=== PATIENT | female | born 1950 | race Caucasian/White ===

== ENCOUNTER 2023-09-19 09:53 | Inpatient (IN) | payer OTHER, MEDICARE ==
[2023-09-19] MEDS ORDERED: NA CHLORIDE 0.9% 1,000 ML ONE (10:28)
[2023-09-19 10:55] LABS: Absolute Lymphocytes (CBC) 1.9 K/uL (0.7-4.9); Lymphocytes % 15.7 % (15.3-44.8); MCV 76.9 fL (80-100); MPV 7.4 fL (7.6-11.3); Platelets 468 thou/uL (152-406); RBC Red Blood Cell Count 4.94 M/uL (3.86-4.86)
[2023-09-19 11:12] LABS: Albumin 3.3 g/dL (3.4-5.0); Bilirubin Direct 0.1 mg/dL (0-0.2); Bilirubin Indirect, Calculated 0.2 mg/dL (0.2-0.8); Bilirubin Total 0.3 mg/dL (0.2-1.0); Potassium 3.8 mEq/L (3.5-5.1); Protein, Total 7.6 g/dL (6.4-8.2)
--- NOTE | 2023-09-19 11:26 | EDPHYS ---
Physician Documentation [facility] Name: Audrey Ridley Age: 73 yrs Sex: Female : 1950 Arrival Date: 09/19/2023 Time: 09:53 Bed 18 Private MD: ED Physician Juan Tobin HPI: 09/19 10:29 This 73 yrs old Female presents to ER via Ambulatory with complaints of abnormal labs. rn 10:29 Patient reports was sick last week with cough/vomiting/diarrhea. Patient states has rn gotten over illness but followed up with PCP yesterday who fior basic labs and noted elevated creatinine and dehydration. Told to come to the emergency room today for IV hydration and further evaluation. Patient denies any chest pain/abdominal pain/vomiting/diarrhea. No other changes in medication. Otherwise feels okay and just started eating and drinking a little bit more yesterday. No history of kidney failure in the past. The patient has been recently seen by a physician:. Historical: - Allergies: 10:07 No Known Allergies; aa5 - PMHx: 10:08 Hypertensive disorder; COPD; thyroid problem; Diabetes mellitus; aa5 - Immunization history:: Adult Immunizations unknown. - Social history:: Smoking status: Patient/guardian denies using tobacco. - Family history:: not pertinent. - Hospitalizations: : No recent hospitalization is reported. ROS: 10:29 Constitutional: Negative for fever, chills, and weight loss, Cardiovascular: Negative rn for chest pain, palpitations, and edema, Respiratory: Negative for shortness of breath, cough, wheezing, and pleuritic chest pain, Abdomen/GI: Negative for abdominal pain, nausea, vomiting, diarrhea, and constipation, Back: Negative for injury and pain, MS/Extremity: Negative for injury and deformity, Skin: Negative for injury, rash, and discoloration, Neuro: Negative for headache, weakness, numbness, tingling, and seizure, Exam: 10:29 Constitutional: This is a well developed, well nourished patient who is awake, alert, rn and in no acute distress. ENT: Dry mucous membranes Cardiovascular: Regular rate and rhythm. No pulse deficits. Respiratory: No increased work of breathing, no retractions or nasal flaring. Abdomen/GI: Soft, non-tender MS/ Extremity: Pulses equal, no cyanosis. Neuro: Awake and alert, GCS 15 Vital Signs: 10:07 BP 135 / 56; Pulse 88; Resp 19 S; Temp 97.6(O); Pulse Ox 98% on R/A; Weight 61.23 kg aa5 (R); Height 5 ft. 5 in. (R); 12:03 BP 144 / 65; Pulse 79; Resp 16; Pulse Ox 96% on R/A; me1 12:30 BP 145 / 67; Pulse 79; Resp 17; Pulse Ox 96% on R/A; me1 13:00 BP 143 / 66; Pulse 79; Resp 17; Pulse Ox 96% on R/A; me1 10:07 Body Mass Index 22.46 (61.23 kg, 165.1 cm) aa5 MDM: 10:02 Patient medically screened. rn 11:25 Differential Diagnosis Acute kidney failure, dehydration, electrolyte disorder. Data rn reviewed: vital signs, nurses notes, lab test result(s), and as a result, I will discharge patient. Counseling: I had a detailed discussion with the patient and/or guardian regarding the historical points, exam findings, and any diagnostic results supporting the discharge/admit diagnosis, lab results, the need for further work-up and treatment in the hospital. Special discussion:. 09/19 10:13 Order name: CBC with Diff; Complete Time: 11:06 09/19 10:13 Order name: Basic Metabolic Panel; Complete Time: 11:15 09/19 10:13 Order name: LFT's; Complete Time: 11:15 09/19 10:13 Order name: Lipase; Complete Time: 11:15 09/19 13:16 Order name: Urinalysis w/ reflexes EDMS 09/19 13:16 Order name: Basic Metabolic Panel EDMS 09/19 13:16 Order name: Basic Metabolic Panel EDMS 09/19 13:16 Order name: Basic Metabolic Panel EDMS 09/19 13:16 Order name: Basic Metabolic Panel EDMS 09/19 13:16 Order name: CBC with Automated Diff EDMS 09/19 13:16 Order name: CBC with Automated Diff EDMS 09/19 13:16 Order name: CBC with Automated Diff EDMS 09/19 13:16 Order name: CBC with Automated Diff EDMS 09/19 13:16 Order name: Magnesium EDMS 09/19 13:16 Order name: Magnesium EDMS 09/19 13:16 Order name: Magnesium EDMS 09/19 13:16 Order name: Magnesium EDMS 09/19 14:36 Order name: Urinalysis w/ reflexes EDMS 09/19 10:13 Order name: IV Start; Complete Time: 10:53 aa5 Administered Medications: 10:52 Drug: NS 0.9% IV 1000 ml IV at 1000 ml once Route: IV; Rate: 1000 ml; Site: right ph antecubital; 12:49 Follow up: IV Status: Completed infusion; IV Intake: 1000ml me1 Disposition Summary: 09/19/23 11:26 Hospitalization Ordered Notes: Hospitalization Status: Inpatient Admission rn Provider: Henrry Chow rn Location: Telemetry/MedSurg (Inpatient) rn Condition: Stable rn Problem: new rn Symptoms: are unchanged rn Bed/Room Type: Standard rn Room Assignment: 220(09/19/23 13:21) em1 Diagnosis - Acute kidney failure, unspecified rn - Hypercalcemia rn - Dehydration rn Forms: - Medication Reconciliation Form rn - SBAR form rn - Leadership Thank You Letter rn Signatures: Dispatcher [employer] EDVT Juan Tobin MD MD rn Martinez, Eric em1 Bekah Ortega RN RN aa5 Teresa Buckley RN RN aYndy Maldonado RN me1 Corrections: (The following items were deleted from the chart) 10:32 10:29 Constitutional: This is a well developed, well nourished patient who is awake, rn alert, and in no acute distress. Cardiovascular: Regular rate and rhythm. No pulse deficits. Respiratory: No increased work of breathing, no retractions or nasal flaring. Abdomen/GI: Soft, non-tender MS/ Extremity: Pulses equal, no cyanosis. Neuro: Awake and alert, GCS 15 rn 13:21 11:26 rn em1 13:39 13:29 Head Brain Wo Cont ordered. EDVT EDVT
--- NOTE | 2023-09-19 11:26 | ER ---
Nurse's Notes [facility] Name: Audrey Urban Age: 73 yrs Sex: Female : 1950 Arrival Date: 09/19/2023 Time: 09:53 Bed 18 Private MD: Diagnosis: Acute kidney failure, unspecified;Hypercalcemia;Dehydration Presentation: 09/19 10:07 Chief complaint: Patient states: sent here by PCP for dehydration. Pt reports aa5 nausea/vomiting/diarrhea x 1 week ago, also reports cough. Reports had blood labs yesterday and creatinine 2.9. Coronavirus screen: cough unrelated to allergies. Ebola Screen: Patient denies travel to an Ebola-affected area in the 21 days before illness onset. Initial Sepsis Screen: Does the patient meet any 2 criteria? No. Patient's initial sepsis screen is negative. Does the patient have a suspected source of infection? No. Patient's initial sepsis screen is negative. Risk Assessment: Do you want to hurt yourself or someone else? Patient reports no desire to harm self or others. Onset of symptoms was September 2023. 10:07 Acuity: RONALDO 3 aa5 10:07 Method Of Arrival: Ambulatory aa5 Historical: - Allergies: 10:07 No Known Allergies; aa5 - PMHx: 10:08 Hypertensive disorder; COPD; thyroid problem; Diabetes mellitus; aa5 - Immunization history:: Adult Immunizations unknown. - Social history:: Smoking status: Patient/guardian denies using tobacco. - Family history:: not pertinent. - Hospitalizations: : No recent hospitalization is reported. Screenin:52 [facility] ED Fall Risk Assessment (Adult) History of falling in the last 3 months, ph including since admission No falls in past 3 months (0 pts) Score/Fall Risk Level 0 - 2 = Low Risk Oriented to surroundings, Maintained a safe environment, Hourly rounding (assess needs \T\ fall precautionary measures) done, Used ambulatory aids as needed (educated on \T\ assisted with). Abuse screen: Denies threats or abuse. Denies injuries from another. Nutritional screening: No deficits noted. Tuberculosis screening: No symptoms or risk factors identified. Assessment: 10:51 General: Appears in no apparent distress. comfortable, well groomed, Behavior is calm, ph cooperative, appropriate for age. Pain: Denies pain. Neuro: Level of Consciousness is awake, alert, obeys commands, Oriented to person, place, time, situation. Cardiovascular: Capillary refill < 3 seconds in bilateral fingers Patient's skin is warm and dry. Respiratory: Airway is patent Respiratory effort is even, unlabored. GI: Reports recent hx of N/V, last episode yesterday, denies symptoms at this time. Derm: Skin is pink, warm \T\ dry. 11:19 Reassessment: Patient appears in no apparent distress at this time. Patient and/or ph family updated on plan of care and expected duration. Pain level reassessed. Patient is alert, oriented x 3, equal unlabored respirations, skin warm/dry/pink. Dr Tobin at bedside to speak w/ pt. Vital Signs: 10:07 BP 135 / 56; Pulse 88; Resp 19 S; Temp 97.6(O); Pulse Ox 98% on R/A; Weight 61.23 kg aa5 (R); Height 5 ft. 5 in. (R); 12:03 BP 144 / 65; Pulse 79; Resp 16; Pulse Ox 96% on R/A; me1 12:30 BP 145 / 67; Pulse 79; Resp 17; Pulse Ox 96% on R/A; me1 13:00 BP 143 / 66; Pulse 79; Resp 17; Pulse Ox 96% on R/A; me1 10:07 Body Mass Index 22.46 (61.23 kg, 165.1 cm) [facility] ED Course: 10:00 Patient arrived in ED. aa5 10:02 Juan Tobin MD is Attending Physician. rn 10:07 Arm band placed on. aa5 10:08 Triage completed. aa5 10:14 Teresa Buckley, RN is Primary Nurse. 10:52 Patient has correct armband on for positive identification. Bed in low position. Call light in reach. Side rails up X 1. Pulse ox on. NIBP on. Door closed. Noise minimized. Pillow given. 10:52 Initial lab(s) drawn, by me, sent to lab. Inserted saline lock: 22 gauge in right ph antecubital area, using aseptic technique. Blood collected. 11:26 Henrry Chow MD is Hospitalizing Provider. rn 14:03 Provided Education on: POC. Verbalized understanding. . me1 14:03 No provider procedures requiring assistance completed. Patient admitted, IV remains in me1 place. Administered Medications: :52 Drug: NS 0.9% IV 1000 ml IV at 1000 ml once Route: IV; Rate: 1000 ml; Site: right ph antecubital; 12:49 Follow up: IV Status: Completed infusion; IV Intake: 1000ml me1 Medication: 10:52 VIS not applicable for this client. ph Intake: 12:49 IV: 1000ml; Total: 1000ml. oh1 Outcome: 11:26 Decision to Hospitalize by Provider. rn 14:03 Admitted to Med/surg accompanied by tech, via wheelchair, room 220, with chart, Report me1 called to ELIZABETH Landaverde 14:03 Condition: stable 14:03 Instructed on the need for admit, 14:43 Patient left the ED. [facility] Signatures: Juan Tobin MD MD rn Calderon, Audri RN RN aa5 Teresa Buckley RN RN ph Eddleman, Michelle, RN RN oh1
--- NOTE | 2023-09-19 13:11 | P.HP ---
Certification for Inpatient Patient admitted to: Observation With expected LOS: <2 Midnights Patient will require the following post-hospital care: None Practitioner: I am a practitioner with admitting privileges, knowledge of patient current condition, hospital course, and medical plan of care. Services: Services provided to patient in accordance with Admission requirements found in Title 42 Section 412.3 of the Code of Federal Regulations Patient History Date of Service: 09/19/23 Reason for admission: acute kidney injury, viral illness History of Present Illness: 73-year-old female with a past medical history of hypertension, COPD, hypothyroidism, diabetes mellitus, presents to the emergency room with viral illness caused, nausea vomiting cough. Abnormal labs showing acute kidney injury, dehydration. Reported gastro enteritis, nausea vomiting diarrhea for several days. Poor p.o. intake. Started feeling bad 1 week ago, poor p.o. intake in, no reported chest pain, abdominal pain, fever, edema, dizziness. Plan to admit for viral gastroenteritis, viral illness, acute kidney injury, dehydration, hypercalcemia.BP 135 / 56; Pulse 88; Resp 19 S; Temp 97.6(O); Pulse Ox 98% on R/A; Weight 61.23 kg ; Height 5 ft. 5 in laboratory evaluation leukocytosis 11.90, mild hyponatremia 131 BUN 48 creatinine 2.82, elevated glucose 343, elevated calcium 14.9, - Past Medical/Surgical History Diabetic: Yes -: Hypertension -: Hyperlipidemia -: Hypothyroidism -: COPD -: Breast tumor -: 3 -: Hysterectomy -: Bilateral mastectomy - Social History Smoking Status: Never smoker Alcohol use: No CD- Drugs: Yes Caffeine use: No Place of Residence: Home Review of Systems per HPI Physical Examination - Physical Exam General: Alert, In no apparent distress, Oriented x3, Confused HEENT: Atraumatic, Normocephalic Neck: 2+ carotid pulse no bruit, JVD not distended Respiratory: Clear to auscultation bilaterally, Other (Dry cough) Cardiovascular: No edema, Normal pulses Capillary refill: <2 Seconds Gastrointestinal: Normal bowel sounds, Soft and benign Musculoskeletal: No clubbing, No swelling Integumentary: No rashes, No breakdown Neurological: Other (Alert and oriented x 2) - Studies Laboratory Data (last 24 hrs) 09/19/23 09/19/23 10:35 10:35 WBC 11.90 H Hgb 12.5 Hct 38.0 Plt Count 468 H Sodium 131 L Potassium 3.8 BUN 48 H Creatinine 2.82 H Glucose 343 H Total Bilirubin 0.3 AST 14 L ALT 23 Alkaline Phosphatase 116 Lipase 76 H Assessment and Plan - Plan Assessment plan Gastroenteritis viral illness nausea vomiting Acute kidney injury likely from prerenal nausea vomiting diarrhea BUN 48 creatinine 2.82, Nephrology, IV fluids, as needed antiemetics trend kidney function Gentle IV fluids, 135 / 56; Pulse 88; Resp 19 S; Temp 97.6(O); Pulse Ox 98% on R/A; Weight 61.23 kg ; Height 5 ft. 5 in laboratory evaluation hypercalcemia Nephrology consult leukocytosis WBCs 11.90, trend WBCs mild hyponatremia 131 elevated glucose 343, elevated calcium 14.9, Diet clear liquids Full code DVT heparin Discharge Plan: Home Plan to discharge in: 48 Hours - Advance Directives Does patient have a Living Will: No Does patient have a Durable POA for Healthcare: No - Code Status/Comfort Care Code Status: Full Code Critical Care: No Time Spent Managing Pts Care (In Minutes): 55
[2023-09-19] MEDS ORDERED: ONDANSETRON 4 MG/2 ML VIAL IV PRN (13:12)
[2023-09-19] MEDS ORDERED: ALPRAZOLAM 0.25 MG TABLET PO PRN (13:12)
[2023-09-19] MEDS ORDERED: GLUCAGON 1 MG/VIAL IM PRN (13:25)
[2023-09-19] MEDS ORDERED: D10W 250 ML BAG IV PRN (13:25)
[2023-09-19] MEDS ORDERED: NA CHLORIDE 0.9% 1,000 ML IV SCH (14:00)
[2023-09-19] MEDS ORDERED: PAMIDRONATE DISOD 30 MG VIAL IV ONE (14:03)
[2023-09-19 14:36] LABS: Urine Bacteria None Seen /HPF (<20); Urine Bilirubin NEGATIVE (Negative); Urine Blood Negative (Negative); Urine Clarity Turbid (Clear); Urine Color Light-Yellow (Yellow); Urine Glucose 3+ (Negative); Urine Mucus Slight /HPF (None Seen); Urine Protein TRACE (Negative); Urine RBC <5 /HPF (None Seen); Urine Urobilinogen Normal (Normal)
[2023-09-19] MEDS ORDERED: PAMIDRONATE 90 MG in NA CHLORIDE 0.9% 500 ML IV ONE (15:00)
[2023-09-19] MEDS ORDERED: PAMIDRONATE 60 MG in NA CHLORIDE 0.9% 500 ML IV ONE (16:00)
[2023-09-19] MEDS: INSULIN REGULAR (HUMAN) 100 UNIT/ML SQ SCH ×2 (17:40→20:45)
[2023-09-19] MEDS: HEPARIN 5000 UNIT/ML 1 ML VIAL SQ SCH (17:40)
[2023-09-19] MEDS: NA CHLORIDE 0.9% 1,000 ML IV SCH (17:47)
[2023-09-19 18:44] LABS: Potassium 3.2 mEq/L (3.5-5.1)
--- NOTE | 2023-09-19 18:53 | P.CNS ---
Date of Consult: 09/19/23 Reason for Consult: SHAMIKA/ Hypercalcemia Requesting Physician: Henrry Chow Chief Complaint: acute kidney injury, viral illness History of Present Illness: 73-year-old female with a past medical history of hypertension, COPD, hyp othyroidism, diabetes mellitus, presents to the emergency room with viral illness caused, nausea vomiting cough. Abnormal labs showing acute kidney injury, dehydration. Reported gastro enteritis, nausea vomiting diarrhea for several days. Poor p.o. intake. Started feeling bad 1 week ago, poor p.o. intake in, no reported chest pain, abdominal pain, fever, edema, dizziness. Plan to admit for viral gastroenteritis, viral illness, acute kidney injury, dehydration, hypercalcemia.BP 135 / 56; Pulse 88; Resp 19 S; Temp 97.6(O); Pulse Ox 98% on R/A; Weight 61.23 kg ; Height 5 ft. 5 in laboratory evaluation leukocytosis 11.90, mild hyponatremia 131 BUN 48 creatinine 2.82, elevated glucose 343, elevated calcium 14.9. 10:29 This 73 yrs old Female presents to ER via Ambulatory with complaints of abnormal labs. rn 10:29 Patient reports was sick last week with cough/vomiting/diarrhea. Patient states has rn gotten over illness but followed up with PCP yesterday who fior basic labs and noted elevated creatinine and dehydration. Told to come to the emergency room today for IV hydration and further evaluation. Patient denies any chest pain/abdominal pain/vomiting/diarrhea. No other changes in medication. Otherwise feels okay and just started eating and drinking a little bit more yesterday. No history of kidney failure in the past. The patient has been recently seen by a physician:. She denies any history of CKD. She reports intermittent NSAIDs including several doses of Aleve prior to the admission. She has not been feeling well for approximately 1.5 weeks. She denies any difficulty with urination. She reports confusion and thirst. She reports daily calcium supplementation. Allergies No Known Allergies Allergy (Unverified 09/19/23 15:33) Home medications list reviewed: Yes - Past Medical/Surgical History Diabetic: Yes -: HTN -: HLD -: Hypothyroidism -: COPD -: Breast tumor -: Hx SHAMIKA (Dr. Hollingsworth/ Dr. Brush) -: Hx Hypercalcemia -: 3 -: Hysterectomy -: Bilateral mastectomy - Social History Smoking Status: Former smoker Alcohol use: No CD- Drugs: No Caffeine use: No Place of Residence: Home Review of Systems 10-point ROS is otherwise unremarkable General: Malaise Neurological: Confusion Physical Examination Temp Pulse Resp BP Pulse Ox 97.1 F 79 18 157/114 H 93 09/19/23 17:19 09/19/23 17:19 09/19/23 17:19 09/19/23 17:19 09/19/23 17:19 General: In no apparent distress, Oriented x3, Cooperative HEENT: Atraumatic Neck: Supple Respiratory: Normal air movement Cardiovascular: No edema, Regular rate/rhythm Gastrointestinal: Soft and benign, Non-distended Musculoskeletal: No clubbing, No contractures Integumentary: No rashes, No cyanosis Neurological: Normal speech Laboratory Data (last 24 hrs) 09/19/23 09/19/23 10:35 10:35 WBC 11.90 H Hgb 12.5 Hct 38.0 Plt Count 468 H Sodium 131 L Potassium 3.8 BUN 48 H Creatinine 2.82 H Glucose 343 H Total Bilirubin 0.3 AST 14 L ALT 23 Alkaline Phosphatase 116 Lipase 76 H Imagings Data: darrenrice EXAM DESCRIPTION: CT - Chest Abd Pelvis Wo Con - 09/19/2023 2:20 pm CLINICAL HISTORY: hypercalcemia; metastatic disease; AMS COMPARISON: No comparisons TECHNIQUE: Thin axial CT images of the chest, abdomen, and pelvis, performed without IV contrast. Multiplanar reformats were generated and reviewed. All CT scans are performed using dose optimization technique as appropriate and may include automated exposure control or mA/KV adjustment according to patient size. FINDINGS: The lungs are clear of consolidative opacities. Irregular ovoid nodule in the medial right middle lobe measuring 9 mm with extension to the pleura on axial image 46. Subpleural right lower lobe 7 mm nodule on axial image 36. Peripheral right upper lobe 5 mm nodule on axial image 31. Other scattered smaller bilateral pulmonary nodules, not exceeding 3 mm. Linear opacities with some bronchial wall thickening and calcified small granulomatous lesions are seen in the left lower lobe, may suggest an indolent infectious or inflammatory process. Small region of tree-in-bud opacities and septal thickening seen in the peripheral left upper lobe, probably of similar etiology. No pleural or pericardial effusion.No intrathoracic adenopathy. The liver shows small hypoattenuating lesions, largest within segment 4A measuring 1.2 cm. Spleen, pancreas, and kidneys are within normal limits. Nonspecific right adrenal 9 mm nodule. Left adrenal gland is unremarkable No bowel obstruction, free air, free fluid or abscess. Normal appendix. No pathologic lymphadenopathy in the abdomen or pelvis. No worrisome osseous finding. Superior endplate compression deformity at T5, favored to be chronic IMPRESSION: Scattered pulmonary nodules as above largest measuring 9 mm. These are indeterminate. Infectious/ inflammatory process as well as metastatic lesions should be considered. Comparison to older chest imaging would be helpful if available. Please correlate clinically, and consider short-term follow-up CT imaging in 1-3 months if no prior imaging or cancer history is available. Other mild pulmonary opacities on the left, suggestive of sequelae of infection/ inflammation. Nonspecific right adrenal 9 mm nodule, difficult to characterize given size. Hypoattenuating small liver lesions, may represent small cysts, also not well characterized. Conclusions/Impression: Stage II SHAMIKA likely due to hypovolemia complicated by NSAIDs & Hypercalcemia. Possible ATN. -Continue IVF Hyponatremia -Continue IVF with NS Hypokalemia -Replete as ordered Hypercalcemia in the setting of hypovolemia and calcium supplementation Possible malignancy associated hypercalcemia -Continue IVF -Pamidronate as ordered -Hypercalcemia labs pending HTN -Consider beta ramona DM II with Hyperglycemia -RISS -Check A1C Microcytosis -Check iron status Hospitalist and ER notes reviewed Thank you kindly for the consultation
[2023-09-19 19:36] LABS: Calcium Oxalate Crystals- Ur Few /HPF (None Seen); Urine Bacteria None Seen /HPF (<20); Urine RBC <5 /HPF (None Seen)
[2023-09-19 19:38] LABS: Specific Gravity 1.011 (1.005-1.030); Urine Bilirubin NEGATIVE (Negative); Urine Blood Negative (Negative); Urine Clarity Turbid (Clear); Urine Color Light-Yellow (Yellow); Urine Glucose 2+ (Negative); Urine Protein TRACE (Negative); Urine Urobilinogen Normal (Normal); Urine pH 7.5 (5.0-7.0)
--- NOTE | 2023-09-19 20:04 | RAD REPORT ---
EXAM DESCRIPTION: CT - Chest Abd Pelvis Wo Con - 09/19/2023 2:20 pm CLINICAL HISTORY: hypercalcemia; metastatic disease; AMS COMPARISON: No comparisons TECHNIQUE: Thin axial CT images of the chest, abdomen, and pelvis, performed without IV contrast. Mu ltiplanar reformats were generated and reviewed. All CT scans are performed using dose optimization technique as appropriate and may include automated exposure control or mA/KV adjustment according to patient size. FINDINGS: The lungs are clear of consolidative opacities. Irregular ovoid nodule in the medial right middle lobe measuring 9 mm with extension to the pleura on axial image 46. Subpleural right lower lo be 7 mm nodule on axial image 36. Peripheral right upper lobe 5 mm nodule on axial image 31. Other sc attered smaller bilateral pulmonary nodules, not exceeding 3 mm. Linear opacities with some bronchial wall thickening and calcified small granulomatous lesions are se en in the left lower lobe, may suggest an indolent infectious or inflammatory process. Small region o f tree-in-bud opacities and septal thickening seen in the peripheral left upper lobe, probably of sim ilar etiology. No pleural or pericardial effusion.No intrathoracic adenopathy. The liver shows small hypoattenuating lesions, largest within segment 4A measuring 1.2 cm. Spleen, pa ncreas, and kidneys are within normal limits. Nonspecific right adrenal 9 mm nodule. Left adrenal gl and is unremarkable No bowel obstruction, free air, free fluid or abscess. Normal appendix. No pathologic lymphadenopath y in the abdomen or pelvis. No worrisome osseous finding. Superior endplate compression deformity at T5, favored to be chronic IMPRESSION: Scattered pulmonary nodules as above largest measuring 9 mm. These are indeterminate. In fectious/ inflammatory process as well as metastatic lesions should be considered. Comparison to olde r chest imaging would be helpful if available. Please correlate clinically, and consider short-term f ollow-up CT imaging in 1-3 months if no prior imaging or cancer history is available. Other mild pulmonary opacities on the left, suggestive of sequelae of infection/ inflammation. Nonspecific right adrenal 9 mm nodule, difficult to characterize given size. Hypoattenuating small liver lesions, may represent small cysts, also not well characterized.
[2023-09-19 20:06] LABS: Ferritin 23.4 ng/mL (8-388)
[2023-09-19] MEDS ORDERED: POTASSIUM CL SA 10 MEQ TAB PO ONE (21:38)
[2023-09-20] MEDS ORDERED: POTASSIUM CL SA 10 MEQ TAB PO ONE ×2 (01:45→08:00)
[2023-09-20] MEDS: HEPARIN 5000 UNIT/ML 1 ML VIAL SQ SCH ×3 (01:57→16:01)
[2023-09-20 03:25] LABS: Absolute Lymphocytes (CBC) 2.8 K/uL (0.7-4.9); Hematocrit 34.8 % (36.0-45.0); Lymphocytes % 24.5 % (15.3-44.8); MCV 76.7 fL (80-100); MPV 7.8 fL (7.6-11.3); Platelets 411 thou/uL (152-406); RBC Red Blood Cell Count 4.53 M/uL (3.86-4.86)
[2023-09-20 03:40] LABS: Albumin 2.9 g/dL (3.4-5.0); Bilirubin Total 0.2 mg/dL (0.2-1.0); Magnesium 1.9 mg/dL (1.6-2.4); Potassium 3.4 mEq/L (3.5-5.1); Protein, Total 6.9 g/dL (6.4-8.2)
--- NOTE | 2023-09-20 07:36 | P.PN ---
Subjective Date of Service: 09/20/23 Chief Complaint: acute kidney injury, viral illness Tolerating diet, no reported fever, nausea vomiting diarrhea - Physical Exam General: Alert, In no apparent distress, Oriented x3, HEENT: Atraumatic, Normocephalic Neck: 2+ carotid pulse no bruit, JVD not distended Respiratory: Clear to auscultation bilaterally, Other (Dry cough) Cardiovascular: No edema, Normal pulses Capillary refill: <2 Seconds Gastrointestinal: Normal bowel sounds, Soft and benign Musculoskeletal: No clubbing, No swelling Integumentary: No rashes, No breakdown Neurological: Other (Alert and oriented x3) Review of Systems per HPI Physical Examination - Vital Signs Temperature: 97.0 F Blood Pressure: 146/68 Pulse: 91 Respirations: 18 Pulse Ox (%): 94 - Studies Laboratory Data (last 24 hrs) 09/19/23 09/19/23 10:35 10:35 WBC 11.90 H Hgb 12.5 Hct 38.0 Plt Count 468 H Sodium 131 L Potassium 3.8 BUN 48 H Creatinine 2.82 H Glucose 343 H Total Bilirubin 0.3 AST 14 L ALT 23 Alkaline Phosphatase 116 Lipase 76 H Assessment And Plan - Plan Assessment plan Gastroenteritis viral illness nausea vomiting Acute kidney injury likely from prerenal nausea vomiting diarrhea BUN 48 creatinine 2.82, Nephrology, IV fluids, as needed antiemetics trend kidney function Gentle IV fluids, 135 / 56; Pulse 88; Resp 19 S; Temp 97.6(O); Pulse Ox 98% on R/A; Weight 61.23 kg ; Height 5 ft. 5 in laboratory evaluation Hypokalemia Trend electrolytes replace as needed Nephrology following hypercalcemia Pulmonary nodules elevated calcium 12.7->12.8 Nephrology consult PTH, vitamin D 1, 25, Pamidronate x 1 ordered Normal saline at 100 an hour Will need outpatient follow-up with hematology, oncology CT of the chest abdomen pelvis ordered EXAM DESCRIPTION: CT - Chest Abd Pelvis Wo Con - 09/19/2023 2:20 pm CLINICAL HISTORY: hypercalcemia; metastatic disease; AMS TECHNIQUE: Thin axial CT images of the chest, abdomen, and pelvis, performed without IV contrast. Multiplanar reformats were generated and reviewed. All CT scans are performed using dose optimization technique as appropriate and may include automated exposure control or mA/KV adjustment according to patient size. FINDINGS: The lungs are clear of consolidative opacities. Irregular ovoid nodule in the medial right middle lobe measuring 9 mm with extension to the pleura on axial image 46. Subpleural right lower lobe 7 mm nodule on axial image 36. Peripheral right upper lobe 5 mm nodule on axial image 31. Other scattered smaller bilateral pulmonary nodules, not exceeding 3 mm. Linear opacities with some bronchial wall thickening and calcified small granulomatous lesions are seen in the left lower lobe, may suggest an indolent infectious or inflammatory process. Small region of tree-in-bud opacities and septal thickening seen in the peripheral left upper lobe, probably of similar etiology. No pleural or pericardial effusion.No intrathoracic adenopathy. The liver shows small hypoattenuating lesions, largest within segment 4A measuring 1.2 cm. Spleen, pancreas, and kidneys are within normal limits. Nonspecific right adrenal 9 mm nodule. Left adrenal gland is unremarkable No bowel obstruction, free air, free fluid or abscess. Normal appendix. No pathologic lymphadenopathy in the abdomen or pelvis. No worrisome osseous finding. Superior endplate compression deformity at T5, favored to be chronic IMPRESSION: Scattered pulmonary nodules as above largest measuring 9 mm. These are indeterminate. Infectious/ inflammatory process as well as metastatic lesions should be considered. Comparison to older chest imaging would be helpful if available. Please correlate clinically, and consider short-term follow-up CT imaging in 1-3 months if no prior imaging or cancer history is available. Other mild pulmonary opacities on the left, suggestive of sequelae of infection/ inflammation. Nonspecific right adrenal 9 mm nodule, difficult to characterize given size. Hypoattenuating small liver lesions, may represent small cysts, also not well characterized. Uncontrolled diabetes Lantus, sliding scale insulin Hemoglobin A1c 9.7 leukocytosis WBCs 11.90, trend WBCs mild hyponatremia 131 elevated glucose 343, Diet clear liquids Full code DVT heparin Discharge Plan: Home - Code Status/Comfort Care Code Status: Full Code Critical Care: No Time Spent Managing PTS Care (In Minutes): 35
[2023-09-20] MEDS ORDERED: cloNIDine HCL 0.1 MG TAB PO ONE (10:00)
[2023-09-20] MEDS: INSULIN REGULAR (HUMAN) 100 UNIT/ML SQ SCH ×4 (10:14→21:00)
[2023-09-20] MEDS: HYDRALAZINE HCL 20 MG/ML VIAL IV PRN (10:18)
[2023-09-20] MEDS ORDERED: NA CHLORIDE 0.9% 1,000 ML IV SCH (14:00)
[2023-09-20] MEDS: NA CHLORIDE 0.9% 1,000 ML IV SCH ×2 (15:53)
[2023-09-20] MEDS: FUROSEMIDE 20 MG/ 2ML VIAL IV SCH ×2 (15:53→16:09)
--- NOTE | 2023-09-20 20:10 | P.PN ---
Date of Service: 09/20/23 Vital Signs Temp Pulse Resp BP Pulse Ox 98.5 F 86 18 153/80 H 95 09/20/23 16:00 09/20/23 15:53 09/20/23 12:29 09/20/23 15:53 09/20/23 16:00 Medications Acetaminophen (Acetaminophen 500 Mg Tab) 500 mg PO Q4HP PRN PRN Reason: Pain scale 2-4 (Mild) Alprazolam (Alprazolam 0.25 Mg Tablet) 0.25 mg PO BEDTIME PRN PRN PRN Reason: INSOMNIA Dextrose (D10w 250 Ml Bag) 125 ml IV PRN PRN; Protocol PRN Reason: HYPOGLYCEMIA Furosemide (Furosemide 20 Mg/ 2ml Vial) 20 mg IV Q8HR [facility] Last Admin: 09/20/23 16:09 Dose: Not Given Glucagon (Glucagon 1 Mg/Vial) 1 mg IM 1X PRN; Protocol PRN Reason: HYPOGLYCEMIA Heparin Sodium (Porcine) (Heparin 5000 Unit/Ml 1 Ml Vial) 5,000 unit SQ Q8HR [facility] Last Admin: 09/20/23 16:01 Dose: 5,000 unit Hydralazine HCl (Hydralazine Hcl 20 Mg/Ml Vial) 10 mg IV Q4HP PRN PRN Reason: Goal to achieve SBP in comment Last Admin: 09/20/23 10:18 Dose: 10 mg Sodium Chloride (Ns 1000 Ml Ivbag) 1,000 mls @ 125 mls/hr IV .Q8H [facility] Last Admin: 09/20/23 15:53 Dose: 1,000 mls Insulin Glargine (Insulin Glargine 100 Unit/Ml) 10 unit SQ BEDTIME [facility] Insulin Human Regular (Insulin Regular (Human) 100 Unit/Ml) 0 unit SQ ACHS [facility]; Protocol Last Admin: 09/20/23 17:22 Dose: 2 unit Nebivolol (Nebivolol Hcl 5 Mg Tab) 2.5 mg PO BEDTIME [facility] Ondansetron HCl (Ondansetron 4 Mg/2 Ml Vial) 4 mg IV Q6HP PRN PRN Reason: NAUSEA / VOMITING Assessment/ Plan: Nephrology No dyspnea No chest pain Good urine output No acute events overnight Vitals, medications, blood work and imaging reviewed in the chart. General: In no apparent distress, Oriented x3, Cooperative HEENT: Atraumatic Neck: Supple Respiratory: Normal air movement Cardiovascular: No edema, Regular rate/rhythm Gastrointestinal: Soft and benign, Non-distended Musculoskeletal: No clubbing, No contractures Integumentary: No rashes, No cyanosis Neurological: Normal speech Laboratory Data (last 24 hrs) 09/19/23 09/19/23 10:35 10:35 WBC 11.90 H Hgb 12.5 Hct 38.0 Plt Count 468 H Sodium 131 L Potassium 3.8 BUN 48 H Creatinine 2.82 H Glucose 343 H Total Bilirubin 0.3 AST 14 L ALT 23 Alkaline Phosphatase 116 Lipase 76 H Imagings Data: EXAM DESCRIPTION: CT - Chest Abd Pelvis Wo Con - 09/19/2023 2:20 pm CLINICAL HISTORY: hypercalcemia; metastatic disease; AMS COMPARISON: No comparisons TECHNIQUE: Thin axial CT images of the chest, abdomen, and pelvis, performed without IV contrast. Multiplanar reformats were generated and reviewed. All CT scans are performed using dose optimization technique as appropriate and may include automated exposure control or mA/KV adjustment according to patient size. FINDINGS: The lungs are clear of consolidative opacities. Irregular ovoid nodule in the medial right middle lobe measuring 9 mm with extension to the pleura on axial image 46. Subpleural right lower lobe 7 mm nodule on axial image 36. Peripheral right upper lobe 5 mm nodule on axial image 31. Other scattered smaller bilateral pulmonary nodules, not exceeding 3 mm. Linear opacities with some bronchial wall thickening and calcified small granulomatous lesions are seen in the left lower lobe, may suggest an indolent infectious or inflammatory process. Small region of tree-in-bud opacities and septal thickening seen in the peripheral left upper lobe, probably of similar etiology. No pleural or pericardial effusion.No intrathoracic adenopathy. The liver shows small hypoattenuating lesions, largest within segment 4A measuring 1.2 cm. Spleen, pancreas, and kidneys are within normal limits. Nonspecific right adrenal 9 mm nodule. Left adrenal gland is unremarkable No bowel obstruction, free air, free fluid or abscess. Normal appendix. No pathologic lymphadenopathy in the abdomen or pelvis. No worrisome osseous finding. Superior endplate compression deformity at T5, favored to be chronic IMPRESSION: Scattered pulmonary nodules as above largest measuring 9 mm. These are indeterminate. Infectious/ inflammatory process as well as metastatic lesions should be considered. Comparison to older chest imaging would be helpful if available. Please correlate clinically, and consider short-term follow-up CT imaging in 1-3 months if no prior imaging or cancer history is available. Other mild pulmonary opacities on the left, suggestive of sequelae of infection/ inflammation. Nonspecific right adrenal 9 mm nodule, difficult to characterize given size. Hypoattenuating small liver lesions, may represent small cysts, also not well characterized. Conclusions/Impression: Stage II SHAMIKA likely due to hypovolemia complicated by NSAIDs & Hypercalcemia. Possible ATN. Proteinuria -Continue IVF Hyponatremia -Continue IVF with NS Hypokalemia -Replete as ordered Hypercalcemia in the setting of hypovolemia and calcium supplementation Possible malignancy associated hypercalcemia -Continue IVF -Pamidronate as ordered -Hypercalcemia labs pending HTN -Start Bystolic qhs DM II with Hyperglycemia A1C 9.7 -RISS Anemia in chronic illness Iron Deficiency 8% -Consider IV iron Hospitalist note reviewed Case reviewed with hospitalist team
[2023-09-20] MEDS: NEBIVOLOL HCL 5 MG TAB PO SCH (20:46)
[2023-09-20] MEDS ORDERED: INSULIN GLARGINE 100 UNIT/ML SQ SCH (21:00)
[2023-09-21] MEDS: NA CHLORIDE 0.9% 1,000 ML IV SCH ×3 (02:23→23:58)
[2023-09-21] MEDS: FUROSEMIDE 20 MG/ 2ML VIAL IV SCH ×3 (02:34→21:00)
[2023-09-21] MEDS: HEPARIN 5000 UNIT/ML 1 ML VIAL SQ SCH ×3 (02:36→17:36)
[2023-09-21 03:13] LABS: Hematocrit 30.4 % (36.0-45.0); Lymphocytes % 24.9 % (15.3-44.8); MCV 76.1 fL (80-100); MPV 7.7 fL (7.6-11.3); Platelets 361 thou/uL (152-406); RBC Red Blood Cell Count 3.99 M/uL (3.86-4.86)
[2023-09-21 03:41] LABS: Albumin 2.5 g/dL (3.4-5.0); Bilirubin Total 0.3 mg/dL (0.2-1.0); Magnesium 1.5 mg/dL (1.6-2.4); Potassium 3.2 mEq/L (3.5-5.1); Protein, Total 6.3 g/dL (6.4-8.2); Thyroid Stimulating Hormone 1.98 uIU/mL (0.358-3.740); Uric Acid 9.6 mg/dL (2.6-6.0)
[2023-09-21 06:25] VITALS: BMI 21.8
[2023-09-21] MEDS ORDERED: POTASSIUM 25 MEQ EFFERV TAB PO ONE (08:16)
--- NOTE | 2023-09-21 08:19 | P.PN ---
Subjective Date of Service: 09/21/23 Chief Complaint: acute kidney injury, viral illness Tolerating diet, no reported fever, nausea vomiting diarrhea - Physical Exam General: Alert, In no apparent distress, Oriented x3, HEENT: Atraumatic, Normocephalic Neck: 2+ carotid pulse no bruit, JVD not distended Respiratory: Clear to auscultation bilaterally, Other (Dry cough) Cardiovascular: No edema, Normal pulses Capillary refill: <2 Seconds Gastrointestinal: Normal bowel sounds, Soft and benign Musculoskeletal: No clubbing, No swelling Integumentary: No rashes, No breakdown Neurological: Other (Alert and oriented x3) <Pam Burrows - Last Filed: 09/21/23 13:01> Date of Service: 09/22/23 <Henrry Chow - Last Filed: 09/22/23 09:24> Review of Systems per HPI <Pam Burrows - Last Filed: 09/21/23 13:01> Physical Examination - Vital Signs Temperature: 98.1 F Blood Pressure: 130/101 Pulse: 77 Respirations: 18 Pulse Ox (%): 93 <StormyPam - Last Filed: 09/21/23 13:01> Assessment And Plan - Plan Assessment plan Gastroenteritis viral illness nausea vomiting Acute kidney injury likely from prerenal nausea vomiting diarrhea improving BUN 48 creatinine 2.82,->33/2.30->30/1.79 Nephrology, IV fluids, as needed antiemetics trend kidney function Gentle IV fluids, 135 / 56; Pulse 88; Resp 19 S; Temp 97.6(O); Pulse Ox 98% on R/A; Weight 61.23 kg ; Height 5 ft. 5 in laboratory evaluation Hypokalemia Trend electrolytes replace as needed Nephrology following Hypertension urgency P.o., as needed antihypertensives hypercalcemia Pulmonary nodules elevated calcium 12.7->12.8-10.3 Nephrology consult PTH, vitamin D 1, 25, Pamidronate x 1 ordered Normal saline at 100 an hour Will need outpatient follow-up with hematology, oncology CT of the chest abdomen pelvis ordered EXAM DESCRIPTION: CT - Chest Abd Pelvis Wo Con - 09/19/2023 2:20 pm CLINICAL HISTORY: hypercalcemia; metastatic disease; AMS TECHNIQUE: Thin axial CT images of the chest, abdomen, and pelvis, performed without IV contrast. Multiplanar reformats were generated and reviewed. All CT scans are performed using dose optimization technique as appropriate and may include automated exposure control or mA/KV adjustment according to patient size. FINDINGS: The lungs are clear of consolidative opacities. Irregular ovoid nodule in the medial right middle lobe measuring 9 mm with extension to the pleura on axial image 46. Subpleural right lower lobe 7 mm nodule on axial image 36. Peripheral right upper lobe 5 mm nodule on axial image 31. Other scattered smaller bilateral pulmonary nodules, not exceeding 3 mm. Linear opacities with some bronchial wall thickening and calcified small granulomatous lesions are seen in the left lower lobe, may suggest an indolent infectious or inflammatory process. Small region of tree-in-bud opacities and septal thickening seen in the peripheral left upper lobe, probably of similar etiology. No pleural or pericardial effusion.No intrathoracic adenopathy. The liver shows small hypoattenuating lesions, largest within segment 4A measuring 1.2 cm. Spleen, pancreas, and kidneys are within normal limits. Nonspecific right adrenal 9 mm nodule. Left adrenal gland is unremarkable No bowel obstruction, free air, free fluid or abscess. Normal appendix. No pathologic lymphadenopathy in the abdomen or pelvis. No worrisome osseous finding. Superior endplate compression deformity at T5, favored to be chronic IMPRESSION: Scattered pulmonary nodules as above largest measuring 9 mm. These are indeterminate. Infectious/ inflammatory process as well as metastatic lesions should be considered. Comparison to older chest imaging would be helpful if available. Please correlate clinically, and consider short-term follow-up CT imaging in 1-3 months if no prior imaging or cancer history is available. Other mild pulmonary opacities on the left, suggestive of sequelae of infection/ inflammation. Nonspecific right adrenal 9 mm nodule, difficult to characterize given size. Hypoattenuating small liver lesions, may represent small cysts, also not well characterized. Uncontrolled diabetes Lantus started 10 HS, increased 12u, sliding scale insulin Hemoglobin A1c 9.7 Blood sugar 277, 207 leukocytosis improved WBCs 11.90,-8.20, trend WBCs mild hyponatremia 131 elevated glucose 343, Diet clear liquids Full code DVT heparin Discharge Plan: Home - Code Status/Comfort Care Code Status: Full Code Critical Care: No Time Spent Managing PTS Care (In Minutes): 35 <Pam Burrows - Last Filed: 09/21/23 13:01> - Plan Assessment/plan: 1. Hypercalcemia secondary to unknown etiology; patient treated with IV fluids and will Lasix as well as 1 dose of pamidronate 60 mg. patient's calcium level has improved significantly. Patient's mental status is stable. Labs are pending. 2. Acute kidney injury; continue with continued IV hydration. Renal function has improved. most likely related to diarrhea from viral gastroenteritis. 3. Type 2 diabetes; strict blood sugar control 4. History of hypertension; strict blood pressure control 5. Hypokalemia; supplement potassium 6. Gi and DVT prophylaxis <Henrry Chow - Last Filed: 09/22/23 09:24>
[2023-09-21] MEDS: INSULIN REGULAR (HUMAN) 100 UNIT/ML SQ SCH ×4 (09:14→21:09)
[2023-09-21] MEDS ORDERED: Magnesium Sulfate 2gm IVPB 2 G/50 ML BAG IV ONE (10:59)
--- NOTE | 2023-09-21 12:51 | P.PN ---
Nephrology No acute complaints, denies any current N/V/dyspnea. Results discussed in detail Vitals, medications, blood work and imaging reviewed in the chart. General: In no apparent distress, Oriented x3, Cooperative HEENT: Atraumatic, not needing o2 Neck: Supple Respiratory: Normal air movement, no rhonchi Cardiovascular: No edema, Regular rate/rhythm Gastrointestinal: Soft and benign, Non-distended Musculoskeletal: Shins non tender Integumentary: No rashes Neurological: Normal speech, alert, oriented Imagings Data: EXAM DESCRIPTION: CT - Chest Abd Pelvis Wo Con - 09/19/2023 2:20 pm CLINICAL HISTORY: hypercalcemia; metastatic disease; AMS COMPARISON: No comparisons TECHNIQUE: Thin axial CT images of the chest, abdomen, and pelvis, performed without IV contrast. Multiplanar reformats were generated and reviewed. All CT scans are performed using dose optimization technique as appropriate and may include automated exposure control or mA/KV adjustment according to patient size. FINDINGS: The lungs are clear of consolidative opacities. Irregular ovoid nodule in the medial right middle lobe measuring 9 mm with extension to the pleura on axial image 46. Subpleural right lower lobe 7 mm nodule on axial image 36. Peripheral right upper lobe 5 mm nodule on axial image 31. Other scattered smaller bilateral pulmonary nodules, not exceeding 3 mm. Linear opacities with some bronchial wall thickening and calcified small granulomatous lesions are seen in the left lower lobe, may suggest an indolent infectious or inflammatory process. Small region of tree-in-bud opacities and septal thickening seen in the peripheral left upper lobe, probably of similar etiology. No pleural or pericardial effusion.No intrathoracic adenopathy. The liver shows small hypoattenuating lesions, largest within segment 4A measuring 1.2 cm. Spleen, pancreas, and kidneys are within normal limits. Nonspecific right adrenal 9 mm nodule. Left adrenal gland is unremarkable No bowel obstruction, free air, free fluid or abscess. Normal appendix. No pathologic lymphadenopathy in the abdomen or pelvis. No worrisome osseous finding. Superior endplate compression deformity at T5, favored to be chronic IMPRESSION: Scattered pulmonary nodules as above largest measuring 9 mm. These are indeterminate. Infectious/ inflammatory process as well as metastatic lesions should be considered. Comparison to older chest imaging would be helpful if available. Please correlate clinically, and consider short-term follow-up CT imaging in 1-3 months if no prior imaging or cancer history is available. Other mild pulmonary opacities on the left, suggestive of sequelae of infection/ inflammation. Nonspecific right adrenal 9 mm nodule, difficult to characterize given size. Hypoattenuating small liver lesions, may represent small cysts, also not well characterized. Conclusions/Impression: Stage II SHAMIKA 2nd to hypercalcemia, possible pre-renal component, other -Unknown baseline but pt denies knowledge of CKD. Cr level downward trending, cont to monitor UA not too impressive. Unremarkable kidneys on CT Hypercalcemia, mod to severe on admission with initial total Ca > 14 mg/dl. PTH suppressed. Concern for hypercalcemia of malignancy vs other systemic process, including on the ddx potentially sarcoidosis with the pulm nodules and lesions elsewhere -Total Ca lower and now < 12 but still elevated at 11.7 after correction for albumin -Cont NS IVF, Lasix ordered by hospitalist team but will lower dose vance as pt has had other electrolyte issues including lower K and Mg -S/p Pamidronate dose per reports. No repeat dosing currently -F/u on send out tests but they may take days and require OP f/u Hypokalemia, hypomagnesemia Repleting with PO KCL and Mg sulfate IV Ad Brush MD, GHANSHYAM
[2023-09-21] MEDS: HYDRALAZINE HCL 20 MG/ML VIAL IV PRN (13:01)
[2023-09-21] MEDS ORDERED: METOPROLOL TARTRATE 5 MG/5 ML INJ IV PRN (13:02)
[2023-09-21] MEDS ORDERED: HYDROCODONE/APAP 5/325 MG TAB PO PRN (13:05)
[2023-09-21] MEDS: HYDRALAZINE HCL 25 MG TABLET PO SCH ×2 (14:15→21:08)
[2023-09-21] MEDS: ACETAMINOPHEN 500 MG TAB PO PRN (17:35)
[2023-09-21] MEDS ORDERED: INSULIN GLARGINE 100 UNIT/ML SQ SCH (21:00)
[2023-09-21] MEDS ORDERED: MIRTAZAPINE 15 MG TAB PO SCH (21:00)
[2023-09-21] MEDS: NEBIVOLOL HCL 5 MG TAB PO SCH (21:08)
[2023-09-22 01:33] LABS: Specific Gravity 1.006 (1.005-1.030); Urine Bacteria <20 /HPF (<20); Urine Bilirubin NEGATIVE (Negative); Urine Blood Negative (Negative); Urine Clarity Clear (Clear); Urine Color Colorless (Yellow); Urine Glucose 2+ (Negative); Urine Mucus Slight /HPF (None Seen); Urine Protein NEGATIVE (Negative); Urine RBC <5 /HPF (None Seen); Urine Urobilinogen Normal (Normal); Urine pH 6.5 (5.0-7.0)
[2023-09-22] MEDS ORDERED: METOPROLOL TARTRATE 5 MG/5 ML INJ IV PRN (02:20)
[2023-09-22 03:06] LABS: Absolute Lymphocytes (CBC) 2.7 K/uL (0.7-4.9); Hematocrit 32.5 % (36.0-45.0); Lymphocytes % 26.2 % (15.3-44.8); MCV 76.8 fL (80-100); MPV 7.9 fL (7.6-11.3); Platelets 408 thou/uL (152-406); RBC Red Blood Cell Count 4.23 M/uL (3.86-4.86)
[2023-09-22 03:35] LABS: Albumin 2.6 g/dL (3.4-5.0); Bilirubin Total 0.1 mg/dL (0.2-1.0); Magnesium 2.4 mg/dL (1.6-2.4); Potassium 2.8 mEq/L (3.5-5.1); Protein, Total 6.3 g/dL (6.4-8.2)
[2023-09-22] MEDS: ACETAMINOPHEN 500 MG TAB PO PRN (04:55)
[2023-09-22] MEDS: KCL 20 MEQ/100 mL IVPB 20 MEQ/100 ML BAG IV SCH ×3 (05:45→12:20)
[2023-09-22] MEDS: NA CHLORIDE 0.9% 1,000 ML IV SCH (06:58)
[2023-09-22] MEDS ORDERED: POTASSIUM CL SA 10 MEQ TAB PO ONE (08:13)
--- NOTE | 2023-09-22 08:19 | P.PN ---
Subjective Date of Service: 09/22/23 Chief Complaint: acute kidney injury, viral illness Asymptomatic, no complaint of abdominal pain, nausea vomiting diarrhea - Physical Exam General: Alert, In no apparent distress, Oriented x3, HEENT: Atraumatic, Normocephalic Neck: 2+ carotid pulse no bruit, JVD not distended Respiratory: Clear to auscultation bilaterally, Other (Dry cough) Cardiovascular: No edema, Normal pulses Capillary refill: <2 Seconds Gastrointestinal: Normal bowel sounds, Soft and benign Musculoskeletal: No clubbing, No swelling Integumentary: No rashes, No breakdown Neurological: Other (Alert and oriented x3) Review of Systems per HPI Physical Examination - Vital Signs Temperature: 97.4 F Blood Pressure: 162/80 Pulse: 79 Respirations: 18 Pulse Ox (%): 95 Assessment And Plan - Plan Assessment plan Gastroenteritis viral illness nausea vomiting Acute kidney injury likely from prerenal nausea vomiting diarrhea BUN 48 creatinine 2.82,->33/2.30->30/1.79->BUN 28/CR 1.67 Nephrology, IV fluids, as needed antiemetics trend kidney function Gentle IV fluids, 135 / 56; Pulse 88; Resp 19 S; Temp 97.6(O); Pulse Ox 98% on R/A; Weight 61.23 kg ; Height 5 ft. 5 in laboratory evaluation Hypokalemia Trend electrolytes replace as needed Nephrology following 2.8 replace with 40 IV, 40 p.o. x 1 Hypertension urgency P.o., as needed antihypertensives hypercalcemia Pulmonary nodules elevated calcium 12.7->12.8-10.3 Nephrology consult PTH, vitamin D 1, 25, Pamidronate x 1 ordered Normal saline at 100 an hour Will need outpatient follow-up with hematology, oncology CT of the chest abdomen pelvis ordered EXAM DESCRIPTION: CT - Chest Abd Pelvis Wo Con - 09/19/2023 2:20 pm CLINICAL HISTORY: hypercalcemia; metastatic disease; AMS TECHNIQUE: Thin axial CT images of the chest, abdomen, and pelvis, performed without IV contrast. Multiplanar reformats were generated and reviewed. All CT scans are performed using dose optimization technique as appropriate and may include automated exposure control or mA/KV adjustment according to patient size. FINDINGS: The lungs are clear of consolidative opacities. Irregular ovoid nodule in the medial right middle lobe measuring 9 mm with extension to the pleura on axial image 46. Subpleural right lower lobe 7 mm nodule on axial image 36. Peripheral right upper lobe 5 mm nodule on axial image 31. Other scattered smaller bilateral pulmonary nodules, not exceeding 3 mm. Linear opacities with some bronchial wall thickening and calcified small granulomatous lesions are seen in the left lower lobe, may suggest an indolent infectious or inflammatory process. Small region of tree-in-bud opacities and septal thickening seen in the peripheral left upper lobe, probably of similar etiology. No pleural or pericardial effusion.No intrathoracic adenopathy. The liver shows small hypoattenuating lesions, largest within segment 4A measuring 1.2 cm. Spleen, pancreas, and kidneys are within normal limits. Nonspecific right adrenal 9 mm nodule. Left adrenal gland is unremarkable No bowel obstruction, free air, free fluid or abscess. Normal appendix. No pathologic lymphadenopathy in the abdomen or pelvis. No worrisome osseous finding. Superior endplate compression deformity at T5, favored to be chronic IMPRESSION: Scattered pulmonary nodules as above largest measuring 9 mm. These are indeterminate. Infectious/ inflammatory process as well as metastatic lesions should be considered. Comparison to older chest imaging would be helpful if available. Please correlate clinically, and consider short-term follow-up CT imaging in 1-3 months if no prior imaging or cancer history is available. Other mild pulmonary opacities on the left, suggestive of sequelae of infection/ inflammation. Nonspecific right adrenal 9 mm nodule, difficult to characterize given size. Hypoattenuating small liver lesions, may represent small cysts, also not well characterized. Uncontrolled diabetes Lantus started 10 HS, increased 12u, increased 14 units at bedtime (2units per day) will need lantus at discharge Nurse to educate on insulin injection Lantus at bedtime Hemoglobin A1c 9.7 Blood sugar 277, 207, 273 Dietitian to educate patient on diabetic diet leukocytosis improved WBCs 11.90,-8.20, trend WBCs mild hyponatremia 131, IVF infusing, Diet ADA Full code DVT heparin Discharge Plan: Home - Code Status/Comfort Care Code Status: Full Code Critical Care: No Time Spent Managing PTS Care (In Minutes): 35
[2023-09-22] MEDS: KCL 20 MEQ/100 mL IVPB 100 ML IV SCH ×2 (09:00→12:25)
[2023-09-22] MEDS: HYDRALAZINE HCL 25 MG TABLET PO SCH (09:10)
[2023-09-22] MEDS: INSULIN REGULAR (HUMAN) 100 UNIT/ML SQ SCH ×2 (09:10→12:20)
[2023-09-22] MEDS: FUROSEMIDE 20 MG/ 2ML VIAL IV SCH (09:12)
[2023-09-22] MEDS: HEPARIN 5000 UNIT/ML 1 ML VIAL SQ SCH ×3 (09:13→16:30)
[2023-09-22] MEDS ORDERED: POTASSIUM 25 MEQ EFFERV TAB PO ONE (09:31)
[2023-09-22] MEDS ORDERED: D50W 25 GM/50 ML SYRINGE IV PRN (13:54)
[2023-09-22] MEDS ORDERED: GLUCAGON 1 MG/VIAL IM PRN (13:54)
[2023-09-22 13:59] VITALS: O2SAT 97
[2023-09-22 15:01] LABS: UR CREAT < 18.0 mg/dL (20-320); UR MICROALBUMIN < 0.5 mg/dL (< 1.9); UR PROTEIN < 5.0 mg/dL (<11.9); Urine Protein/Creatinine Ratio ND ratio (<0.15)
[2023-09-22] MEDS ORDERED: INSULIN REGULAR (HUMAN) 100 UNIT/ML SQ SCH (16:30)
[2023-09-22] MEDS: HYDRALAZINE HCL 20 MG/ML VIAL IV PRN (16:30)
[2023-09-22 16:57] VITALS: TEMP 98.4
[2023-09-22] MEDS ORDERED: SPIRONOLACTONE 25 MG TABLET PO ONE (17:00)
--- NOTE | 2023-09-22 17:03 | P.DS ---
Admission Date: 09/19/23 Discharge Date: 09/22/23 Disposition: ROUTINE DISCHARGE Discharge Condition: GOOD Reason for Admission: acute kidney injury, viral illness Brief History of Present Illness: 73-year-old female with a past medical history of hypertension, COPD, hypothyroidism, diabetes mellitus, presents to the emergency room with viral illness caused, nausea vomiting cough. Abnormal labs showing acute kidney injury, dehydration. Reported gastro enteritis, nausea vomiting diarrhea for several days. Poor p.o. intake. Started feeling bad 1 week ago, poor p.o. intake in, no reported chest pain, abdominal pain, fever, edema, dizziness. Plan to admit for viral gastroenteritis, viral illness, acute kidney injury, dehydration, hypercalcemia.BP 135 / 56; Pulse 88; Resp 19 S; Temp 97.6(O); Pulse Ox 98% on R/A; Weight 61.23 kg ; Height 5 ft. 5 in laboratory evaluation leukocytosis 11.90, mild hyponatremia 131 BUN 48 creatinine 2.82, elevated glucose 343, elevated calcium 14.9, Hospital Course: 73-year-old female presented to the emergency room with abnormal labs showing acute kidney injury. She was noted to have acute kidney injury, after a viral illness, hypercalcemia, hyperglycemia, Was seen by nephrology consult for acute kidney injury unknown baseline. Was treated with IV fluids. She was noted to have abnormal pulmonary lesions needs to follow-up with oncology after discharge. Stable for discharge with follow-up appointment with nephrology and oncology. PROBLEM: Acute kidney injury secondary to dehydration after gastroenteritis Elevated calcium Hyperglycemia She will need to follow-up with nephrology after discharge Avoid nephrotoxic medications, ibuprofen, Motrin She will need to follow-up with the primary care for elevated blood glucose For Accu-Chek, diabetes education management. GOAL: Clear understanding of disease process INSTRUCTIONS: Physician Discharge Instructions: -DC IV and DC home -Follow-up with PCP in 1 to 2 weeks -Please call Dr. Chow at [phone] if any questions regarding hospital stay -Please call nursing station at [phone] if any nursing or medication questions -Return to the emergency room if symptoms worsen Diet: ADA, low sodium Activity: Fall precautions DME: Date Ordered: Name of Company: [employer] Services Needed: None Date or Referral: IMMUNIZATION Influenza Vaccine Indicated: Influenza Vaccine Given: Date Given: Pneumonia Vaccine Indicated: Pneumonia Vaccine Given: Date Given: Vital Signs/Physical Exam: Temp Pulse Resp BP Pulse Ox 98.4 F 75 18 203/79 H 96 09/22/23 16:00 09/22/23 16:00 09/22/23 16:00 09/22/23 16:00 09/22/23 16:00 Laboratory Data at Discharge: WBC 10.30 thou/uL (4.3-10.9) 09/22/23 02:13 Hgb 10.8 g/dL (12.0-15.0) L 09/22/23 02:13 Hct 32.5 % (36.0-45.0) L 09/22/23 02:13 Plt Count 408 thou/uL (152-406) H 09/22/23 02:13 Sodium 139 mEq/L (136-145) 09/22/23 02:13 Potassium 2.8 mEq/L (3.5-5.1) L 09/22/23 02:13 BUN 28 mg/dL (7-18) H 09/22/23 02:13 Creatinine 1.67 mg/dL (0.55-1.02) H 09/22/23 02:13 Glucose 165 mg/dL (74-106) H 09/22/23 02:13 Uric Acid 9.6 mg/dL (2.6-6.0) H 09/21/23 02:23 Phosphorus 2.0 mg/dL (2.5-4.9) L 09/20/23 02:44 Magnesium 2.4 mg/dL (1.6-2.4) 09/22/23 02:13 Total Bilirubin 0.1 mg/dL (0.2-1.0) L 09/22/23 02:13 AST 15 U/L (15-37) 09/22/23 02:13 ALT 21 U/L (13-56) 09/22/23 02:13 Alkaline Phosphatase 82 U/L (45-117) 09/22/23 02:13 Lipase 76 U/L (13-75) H 09/19/23 10:35 Home Medications: Alprazolam [Xanax] 0.25 mg PO BID PRN #30 tab 09/22/23 Hydralazine [Apresoline*] 25 mg PO TID #90 tab 09/22/23 Insulin Glargine,Hum.rec.anlog [Semglee] 14 unit SQ BEDTIME #10 ml 09/22/23 Mirtazapine [Remeron*] 15 mg PO BEDTIME #30 tab 09/22/23 Nebivolol HCl [Bystolic*] 5 mg PO BEDTIME #30 tab 09/22/23 Spironolactone [Aldactone*] 25 mg PO BID #60 tab 09/22/23 New Medications: Spironolactone [Aldactone*] 25 mg PO BID #60 tab Hydralazine [Apresoline*] 25 mg PO TID #90 tab Nebivolol HCl [Bystolic*] 5 mg PO BEDTIME #30 tab Mirtazapine [Remeron*] 15 mg PO BEDTIME #30 tab Insulin Glargine,Hum.rec.anlog [Semglee] 14 unit SQ BEDTIME #10 ml Alprazolam [Xanax] 0.25 mg PO BID PRN #30 tab PRN Reason: Anxiety Physician Discharge Instructions: OK TO DC IV AND DC HOME FOLLOW-UP WITH PRIMARY CARE PROVIDER IN 1-2 WEEKS FOLLOW-UP WITH NEPHROLOGY and ONCOLGY IN 1-2 WEEKS RETURN TO THE ER IF SYMPTOMS WORSENS CALL DR. CHOW AT [phone] IF ANY QUESTIONS REGARDING HOSPITAL STAY. PLEASE CALL THE FLOOR AT [phone] IF ANY MEDICATION OR NURSING QUESTIONS. Diet: AHA Activity: Fall precautions Followup: NONE,NONE [Primary Care Provider] -
[2023-09-22 17:21] LABS: Magnesium 2.2 mg/dL (1.6-2.4); Potassium 3.9 mEq/L (3.5-5.1)
[2023-09-22 17:48] VITALS: BP 158/64
[2023-09-22] MEDS ORDERED: NEBIVOLOL HCL 5 MG TAB PO SCH (21:00)
[2023-09-22] MEDS ORDERED: SPIRONOLACTONE 25 MG TABLET PO SCH (21:00)
[2023-09-22] MEDS ORDERED: HYDRALAZINE HCL 25 MG TABLET PO SCH (21:00)
[2023-09-22] MEDS ORDERED: INSULIN GLARGINE 100 UNIT/ML SQ SCH (21:00)
[2023-09-22 22:45] LABS: Vitamin D 1,25-Dihydroxy Total 50 pg/mL (18-72); Vitamin D,1,25-OH2, D2 <8 pg/mL
[2023-09-24 14:06] LABS: Alpha-1-Globulins 0.3 g/dL (0.2-0.3); Alpha-2-Globulins 0.8 g/dL (0.5-0.9); Gamma Globulins 0.9 g/dL (0.8-1.7); INTERPRETATION REPORT
== END 2023-09-22 18:24 | disposition home or self-care (01) | DRG 683 ==
LOC: ER 09:53 → ERHOLD 13:42 → 2ND 13:56
PROVIDERS: ADMIT Hospitalist; ATTEND Hospitalist
DX: N17.9 Acute kidney failure, unspecified (principal); E87.1 Hypo-osmolality and hyponatremia; A08.4 Viral intestinal infection, unspecified; E86.0 Dehydration; J44.9 Chronic obstructive pulmonary disease, unspecified; E87.6 Hypokalemia; E11.65 Type 2 diabetes mellitus with hyperglycemia; E83.52 Hypercalcemia; D50.9 Iron deficiency anemia, unspecified; I10 Essential (primary) hypertension; I16.0 Hypertensive urgency; E03.9 Hypothyroidism, unspecified; D63.8 Anemia in other chronic diseases classified elsewhere; R91.8 Other nonspecific abnormal finding of lung field; Z79.4 Long term (current) use of insulin; Z90.13 Acquired absence of bilateral breasts and nipples; Z90.710 Acquired absence of both cervix and uterus; Z87.891 Personal history of nicotine dependence; Z79.899 Other long term (current) drug therapy
CPT/HCPCS: 36415; 71250; 74176; 80048; 80053; 80076; 81001; 81003; 82043; 82088; 82164; 82306; 82435; 82570; 82652; 82728; 82947; 83036; 83519; 83540; 83690; 83735; 83970; 84100; 84132; 84156; 84165; 84244; 84300; 84443; 84466; 84550; 85025; 96360; 96361; 99285; J0360; J1644; J1815; J1940; J2430; J3475; J3480; J7030; J7040

== ENCOUNTER 2024-02-07 11:59 | Emergency (ER) | payer OTHER, MEDICARE ==
[2024-02-07] MEDS ORDERED: HYDROCODONE/APAP 7.5/325 MG TAB ONE (12:29)
--- NOTE | 2024-02-07 14:06 | RAD REPORT ---
EXAM DESCRIPTION: CT - Head C Spine Cap Wo Con - 02/07/2024 1:03 pm CLINICAL HISTORY: PAIN COMPARISON: Chest Abd Pelvis Wo Con dated 09/19/2023 TECHNIQUE: Head and cervical spine CT images were obtained without IV contrast. Chest, abdomen, and pelvis CT images were obtained also without IV contrast. Multiplanar reformats were generated and rev iewed. All CT scans are performed using dose optimization technique as appropriate and may include automated exposure control or mA/KV adjustment according to patient size. FINDINGS: CT HEAD: No intracranial hemorrhage, mass effect, or edema. No evidence of acute territorial infarct. No midli ne shift or abnormal fluid collection. The ventricles are normal in caliber and configuration for age . Basal cisterns are patent. Mastoid aircells and paranasal sinuses are clear. No acute skull fractur e. Mild swelling and laceration to the right vertical scalp. CT CERVICAL SPINE: No acute cervical spine fracture or subluxation. Vertebral body heights are well maintained. Up to mo derate multilevel degenerative changes, with degrees of neural foraminal narrowing, most pronounced o n the right at C4-5, and on the left at C5-6. No hyperattenuating canal hematoma. Prevertebral and pa raspinous soft tissues are unremarkable. CT CHEST: No pneumothorax, pulmonary contusion or pleural fluid collection. Confluent calcified granulomas in t he peripheral left lower lobe, stable. No mediastinal hematoma and the aorta and pulmonary arteries a re unremarkable. Mild fluid distention of the esophagus, with a small hiatal hernia noted. No chest w ill mass or abnormal axillary finding. No displaced rib fracture or other significant bony finding. CT ABDOMEN/ PELVIS: No evidence of traumatic injury to solid abdominal viscera. Gallbladder and biliary tree are unremark able. No bowel injury or significant finding. No free air, free fluid or abnormal fat stranding. No u rinary bladder abnormality. Mildly displaced fractures of the posterior right eleventh and twelfth ribs. Superior endplate compre ssion deformity at T5, stable. IMPRESSION: Mildly displaced fractures of the posterior right eleventh and twelfth ribs. Mild swelling and laceration to the right scalp at the vertex. No other acute traumatic findings. Incidental findings as above.
--- NOTE | 2024-02-07 14:14 | ER ---
Nurse's Notes [facility] Name: Audrey Urban Age: 74 yrs Sex: Female : 1950 Arrival Date: 02/07/2024 Time: 11:59 Bed 10 Private MD: Diagnosis: Fall on same level, unspecified;Strain of muscle and tendon of front wall of thorax;Strain of muscle and tendon of back wall of thorax;Contusion of abdominal wall;Multiple fractures of ribs, right side-11th and 12th ribs, mildly displaced Presentation: 02/06 12:05 Chief complaint: Patient states: pt tripped and fell 2 nights ago and has had right as6 sided rib pain since. Coronavirus screen: At this time, the client does not indicate any symptoms associated with coronavirus-19. Ebola Screen: No symptoms or risks identified at this time. Initial Sepsis Screen: Does the patient meet any 2 criteria? No. Patient's initial sepsis screen is negative. Does the patient have a suspected source of infection? No. Patient's initial sepsis screen is negative. Risk Assessment: Do you want to hurt yourself or someone else? Patient reports no desire to harm self or others. Onset of symptoms was February 05, 2024. 12:05 Method Of Arrival: Ambulatory as6 12:05 Acuity: RONALDO 3 as6 Historical: - Allergies: 12:08 No Known Allergies; as6 - PMHx: 12:08 Thyroid problem; COPD; diabetes mellitus; Hypertensive disorder; as6 - PSHx: 12:08 breast (Hypertensive disorder); as6 - Immunization history:: Adult Immunizations up to date. - Infectious Disease History:: Denies. - Social history:: Smoking status: Patient denies any tobacco usage or history of. Screenin:09 [facility] ED Fall Risk Assessment (Adult) History of falling in the last 3 months, mb9 including since admission Yes- single mechanical fall (1 pt) Confusion or Disorientation No (0 pts) Intoxicated or Sedated No (0 pts) Impaired Gait No (0 pts) Mobility Assist Device Used No (0 pt) Altered Elimination No (0 pt) Score/Fall Risk Level 0 - 2 = Low Risk Oriented to surroundings, Maintained a safe environment, Educated pt \T\ family on fall prevention, incl call for assistance when getting out of bed. Abuse screen: Denies threats or abuse. Nutritional screening: No deficits noted. Tuberculosis screening: No symptoms or risk factors identified. Assessment: 12:13 General: Appears in no apparent distress. Behavior is calm, cooperative. Pain: mb9 Complains of pain in right lateral chest Pain does not radiate. Pain currently is 7 out of 10 on a pain scale. Quality of pain is described as sharp, stabbing, Pain began 2-3 days ago. Is intermittent, Aggravated by increased activity, cough. Neuro: Plummer Agitation-Sedation Scale (RASS): 0 - Alert and Calm Level of Consciousness is awake, alert, obeys commands, Oriented to person, place, time, situation, Appropriate for age. Cardiovascular: Patient's skin is warm and dry. Respiratory: Airway is patent Respiratory effort is even, unlabored, Respiratory pattern is regular, symmetrical. GI: No signs and/or symptoms were reported involving the gastrointestinal system. : No signs and/or symptoms were reported regarding the genitourinary system. EENT: No signs and/or symptoms were reported regarding the EENT system. Derm: Skin is pink, warm \T\ dry. Musculoskeletal: Range of motion: intact in all extremities. 13:51 Reassessment: Patient and/or family updated on plan of care and expected duration. Pain mb9 level reassessed. Patient is alert, oriented x 3, equal unlabored respirations, skin warm/dry/pink. Patient states feeling better. Patient states symptoms have improved. Vital Signs: 12:05 BP 123 / 97; Pulse 101; Resp 16 S; Temp 97.3(TE); Pulse Ox 97% on R/A; Weight 56.7 kg as6 (R); Height 5 ft. 5 in. (R); Pain 8/10; 12:14 Pulse 88; Resp 16; Pulse Ox 99% on R/A; mb9 14:23 BP 125 / 75; Pulse 78; Resp 18; Pulse Ox 100% on R/A; mb9 12:05 Body Mass Index 20.80 (56.70 kg, 165.1 cm) as6 12:05 Pain Scale: Adult as6 ED Course: 12:02 Patient arrived in ED. rg4 12:06 Bipin Green MD is Attending Physician. prakash 12:07 Triage completed. as6 12:08 Arm band placed on right wrist. as6 12:09 Melyssa Beal, RN is Primary Nurse. mb9 12:09 Placed in gown. Bed in low position. Call light in reach. Side rails up X 1. Provided mb9 Education on: press call light if needing anything. Provided education on IS. Client placed on continuous cardiac and pulse oximetry monitoring. NIBP monitoring applied. Door closed. Noise minimized. Warm blanket given. Pillow given. 12:09 No provider procedures requiring assistance completed. mb9 13:05 CT Traumagram (Head C Spine CAP wo con) In Process Unspecified. EDMS 14:23 Patient did not have IV access during this emergency room visit. mb9 Administered Medications: 12:33 Drug: Hydrocodone-Acetaminophen PO (7.5 mg-325 mg) 1 tabs PO once Route: PO; mb9 13:34 Follow up: Response: No adverse reaction maxine9 Medication: 12:09 VIS not applicable for this client. mb9 Outcome: 14:14 Discharge ordered by . prakash 14:23 Discharged to home ambulatory, with family, johann 14:23 Condition: stable 14:23 Discharge instructions given to patient, family, Instructed on discharge instructions, follow up and referral plans. Demonstrated understanding of instructions, follow-up care, medications, Prescriptions given X 1, 14:23 Patient left the ED. mb9 Signatures: Dispatcher [employer] EDOH Bipin Green MD MD cha Garcia, Rubi rg4 Carl Dela Cruz RN RN as6 Melyssa Beal, RN RN mb9 Corrections: (The following items were deleted from the chart) 12:52 12:09 Provided Education on: press call light if needing anything. mb9 mb9
--- NOTE | 2024-02-07 14:14 | EDPHYS ---
Physician Documentation [facility] Name: Audrey Urban Age: 74 yrs Sex: Female : 1950 Arrival Date: 02/07/2024 Time: 11:59 Bed 10 Private MD: ED Physician Bipin Green HPI: 02/06 13:25 This 74 yrs old Female presents to ER via Ambulatory with complaints of Fall prakash Injury. 13:25 Details of fall: The patient fell from an upright position, while walking. Onset: The prakash symptoms/episode began/occurred 3 day(s) ago. Associated injuries: The patient sustained injury to the head, injury to the chest, injury to the abdomen. Severity of symptoms: At their worst the symptoms were mild, moderate, in the emergency department the symptoms are unchanged. The patient has not experienced similar symptoms in the past. Historical: - Allergies: 12:08 No Known Allergies; as6 - PMHx: 12:08 Thyroid problem; COPD; diabetes mellitus; Hypertensive disorder; as6 - PSHx: 12:08 breast (Hypertensive disorder); as6 - Immunization history:: Adult Immunizations up to date. - Infectious Disease History:: Denies. - Social history:: Smoking status: Patient denies any tobacco usage or history of. ROS: 13:31 Constitutional: Negative for fever, chills, and weight loss, Eyes: Negative for injury, prakash pain, redness, and discharge, ENT: Negative for injury, pain, and discharge, Neck: Negative for injury, pain, and swelling, Cardiovascular: Negative for chest pain, palpitations, and edema, Respiratory: Negative for shortness of breath, cough, wheezing, and pleuritic chest pain, Back: Negative for injury and pain, : Negative for injury, bleeding, discharge, and swelling, MS/Extremity: Negative for injury and deformity, Skin: Negative for injury, rash, and discoloration, Neuro: Negative for headache, weakness, numbness, tingling, and seizure, Psych: Negative for depression, anxiety, suicide ideation, homicidal ideation, and hallucinations, Allergy/Immunology: Negative for hives, rash, and allergies, Endocrine: Negative for neck swelling, polydipsia, polyuria, polyphagia, and marked weight changes, Hematologic/Lymphatic: Negative for swollen nodes, abnormal bleeding, and unusual bruising, 13:31 Cardiovascular: Positive for right chest wall pain, 13:31 Abdomen/GI: Positive for abdominal pain, of the posterior aspect of right lateral abdomen, anterior aspect of right lateral abdomen and right upper quadrant, Exam: 13:31 Constitutional: This is a well developed, well nourished patient who is awake, alert, prakash and in no acute distress. Head/Face: Normocephalic, atraumatic. Eyes: Pupils equal round and reactive to light, extra-ocular motions intact. Lids and lashes normal. Conjunctiva and sclera are non-icteric and not injected. Cornea within normal limits. Periorbital areas with no swelling, redness, or edema. ENT: Nares patent. No nasal discharge, no septal abnormalities noted. Tympanic membranes are normal and external auditory canals are clear. Oropharynx with no redness, swelling, or masses, exudates, or evidence of obstruction, uvula midline. Mucous membranes moist. Neck: Trachea midline, no thyromegaly or masses palpated, and no cervical lymphadenopathy. Supple, full range of motion without nuchal rigidity, or vertebral point tenderness. No Meningismus. Cardiovascular: Regular rate and rhythm with a normal S1 and S2. No gallops, murmurs, or rubs. Normal PMI, no JVD. No pulse deficits. Respiratory: Lungs have equal breath sounds bilaterally, clear to auscultation and percussion. No rales, rhonchi or wheezes noted. No increased work of breathing, no retractions or nasal flaring. Back: No spinal tenderness. No costovertebral tenderness. Full range of motion. Female : Normal external genitalia. Skin: Warm, dry with normal turgor. Normal color with no rashes, no lesions, and no evidence of cellulitis. MS/ Extremity: Pulses equal, no cyanosis. Neurovascular intact. Full, normal range of motion. Neuro: Awake and alert, GCS 15, oriented to person, place, time, and situation. Cranial nerves II-XII grossly intact. Motor strength 5/5 in all extremities. Sensory grossly intact. Cerebellar exam normal. Normal gait. Psych: Awake, alert, with orientation to person, place and time. Behavior, mood, and affect are within normal limits. 13:31 Chest/axilla: Inspection: normal, no acute changes, Palpation: tenderness, that is mild, of the right lateral posterior chest and right lateral anterior chest, Vital Signs: 12:05 BP 123 / 97; Pulse 101; Resp 16 S; Temp 97.3(TE); Pulse Ox 97% on R/A; Weight 56.7 kg as6 (R); Height 5 ft. 5 in. (R); Pain 8/10; 12:14 Pulse 88; Resp 16; Pulse Ox 99% on R/A; mb9 14:23 BP 125 / 75; Pulse 78; Resp 18; Pulse Ox 100% on R/A; mb9 12:05 Body Mass Index 20.80 (56.70 kg, 165.1 cm) as6 12:05 Pain Scale: Adult as6 MDM: 12:07 Patient medically screened. prakash 13:33 Differential diagnosis: abrasion, closed head injury, contusion, fracture, laceration, prakash multiple trauma, sprain, strain. Data reviewed: vital signs, nurses notes, radiologic studies, CT scan. Consideration of Admission/Observation Escalation of care including admission/observation considered. I considered the following discharge prescriptions or medication management in the emergency department Medications were administered in the Emergency Department. See MAR. Independent interpretation of the following test(s) in the Emergency Department CT Scan: My interpretation is ct trauma. Test considered but Not performed: Labs: no labs. Historians other than the Patient: Spouse/Significant Other: well informed. Care significantly affected by the following chronic conditions: Diabetes, Hypertension, Chronic Obstructive Pulmonary Disease. 02/06 12:26 Order name: INCENTIVE SPIROMETRY prakash 02/06 12:56 Order name: CT Traumagram (Head C Spine CAP wo con); Complete Time: 14:11 prakash Administered Medications: 12:33 Drug: Hydrocodone-Acetaminophen PO (7.5 mg-325 mg) 1 tabs PO once Route: PO; mb9 13:34 Follow up: Response: No adverse reaction mb9 Disposition Summary: 02/07/24 14:14 Discharge Ordered Notes: Location: Home prakash Problem: new prakash Symptoms: have improved prakash Condition: Stable prakash Diagnosis - Fall on same level, unspecified prakash - Strain of muscle and tendon of front wall of thorax prakash - Strain of muscle and tendon of back wall of thorax prakash - Contusion of abdominal wall prakash - Multiple fractures of ribs, right side - 11th and 12th ribs, mildly displaced prakash Followup: prakash - With: Private Physician - When: 2 - 3 days - Reason: Recheck today's complaints, Continuance of care, Re-evaluation by your physician Discharge Instructions: - Discharge Summary Sheet prakash - Abdominal Pain, Adult prakash - Chest Contusion, Adult prakash - Fall Prevention in the Home, Adult prakash - Chest Contusion, Adult, [id number] prakash - Fall Prevention in the Home, Adult, [id number] prakash - Incentive Spirometer Record [facility] Forms: - Medication Reconciliation Form prakash - Antibiotic Education prakash - Prescription Opioid Use prakash - Patient Portal Instructions [facility] - Leadership Thank You Letter [facility] Prescriptions: - acetaminophen-codeine 300-30 mg Oral tablet - take 2 tablet ORAL route every 6 hours as needed for pain; 20 tablet; Refills: prakash 0, Product Selection Permitted Signatures: Dispatcher [employer] EDMS Bipin Green MD MD cha Slawson, Ashby RN RN as6 Melyssa Beal RN RN mb9 Corrections: (The following items were deleted from the chart) 12:56 12:56 Head C Spine Cap Wo Con+CT.RAD.BRZ ordered. EDMS EDMS 13:00 12:27 Chest Abdomen Pelvis Wo Con+CT.RAD.BRZ ordered. EDMS EDMS
[2024-02-07 14:45] VITALS: TEMP 97.3
[2024-02-07 15:05] VITALS: BP 125/75; O2SAT 100
== END 2024-02-07 14:23 | disposition home or self-care (01) ==
LOC: ER 11:59
DX: S22.41XA Multiple fractures of ribs, right side, initial encounter for closed fracture (principal); S29.011A Strain of muscle and tendon of front wall of thorax, initial encounter; S29.012A Strain of muscle and tendon of back wall of thorax, initial encounter; S30.1XXA Contusion of abdominal wall, initial encounter; W18.30XA Fall on same level, unspecified, initial encounter
CPT/HCPCS: 70450; 71250; 72125; 99284